=== PATIENT | male | born 1950 | race Caucasian/White ===

== ENCOUNTER 2016-11-16 11:45 | Outpatient (CLI) | payer MEDICARE ==
[2016-11-16 12:37] LABS: ALT (SGPT) 28 U/L (8-55); AST (SGOT) 19 U/L (5-34); Albumin 4.3 g/dL (3.4-4.8); Alkaline Phosphatase 81 U/L (40-150); Anion Gap 12 mmol/L (10-20); BUN (Urea Nitrogen) 17 mg/dL (8.4-25.7); Bilirubin, Direct 0.2 mg/dL (0.1-0.3); Bilirubin, Total 0.4 mg/dL (0.2-1.2); Calc. Creatinine Clearance 0 mL/min (70-130); Calcium 9.2 mg/dL (7.8-10.44); Carbon Dioxide 25 mmol/L (23-31); Chloride 106 mmol/L (98-107); Cholesterol 103 mg/dl (< 200 Desired); Estimated GFR-MDRD 88; Glucose 104 mg/dL (80-115); HDL Cholesterol 26 mg/dL (>60 Neg Risk); LDL Cholesterol, Calculated 36 mg/dL; Potassium 4.2 mmol/L (3.5-5.1); Sodium 139 mmol/L (136-145); Triglycerides 204 mg/dL (Less than 150)
== END 2016-11-16 11:46 | disposition home or self-care (01) ==
LOC: BURLAB 11:45
PROVIDERS: ATTEND Internal Medicine Cardiovascular Disease
DX: I48.0 Paroxysmal atrial fibrillation (principal); I10 Essential (primary) hypertension; E66.8 Other obesity
CPT/HCPCS: 36415; 80048; 80061; 80076

== ENCOUNTER 2016-12-03 13:00 | Emergency (ER) | payer MEDICARE ==
[2016-12-03 13:46] LABS: CKMB 1.1 ng/mL (0-6.6); Troponin I Less than 0.010 ng/mL (< 0.028)
[2016-12-03 13:50] LABS: #Basophils 0.1 thou/uL (0.0-0.2); #Eosinphils 0.3 thou/uL (0.0-0.7); #Monocytes 1.4 thou/uL (0.11-0.59); #Neutrophils 7.7 thou/uL (1.40-6.50); %Eosinophils 2.4 % (0.0-10.0); %Lymphocytes 20.9 % (21.0-51.0); %Monocytes 11.4 % (0.0-10.0); %Neutrophils 64.2 % (42.0-75.0); Elliptocytes SLIGHT = 2-5 cells (100X) (0-1/hpf); Hemoglobin 11.3 g/dL (14.0-18.0); Hypochromia MODERATE=16-30 cells (100X) (0-5/hpf); MDiff Complete? YES; Mean Corpuscular HGB CONC 30.1 g/dL (32.0-36.0); Mean Corpuscular Hemoglobin 19.3 pg (27.0-31.0); Mean Corpuscular Volume 64.4 fl (80.0-94.0); Mean Platelet Volume 7.4 fL (7.4-10.4); Microcytosis MARKED = >30 cells (100X) (0-5/hpf); Platelet Count 297 thou/uL (130-400); Polychromasia SLIGHT = 2-3 cells (100X) (0-2/hpf); RBC Distribution Width 16.6 % (11.5-14.5); Red Blood Cell (RBC) Count 5.86 mill/uL (4.70-6.10); Tear Drops SLIGHT = 2-5 cells (100X) (0-1/hpf); White Blood Cell (WBC) Count 11.9 thou/uL (4.8-10.8)
[2016-12-03 14:12] LABS: Bilirubin Negative (Negative); Blood, Urine Negative (Negative); Clarity Clear (Clear); Glucose, Urine (Dipstick) Negative (Negative); Leukocyte Negative (Negative); Nitrite Negative (Negative); Protein, Urine (Dipstick) Negative (Neg-Trace); Urobilinogen 0.2 mg/dL (0.2-1.0); pH, Urine 5.5 (5.0-9.0)
[2016-12-03 14:46] LABS: ALT (SGPT) 31 U/L (8-55); AST (SGOT) 23 U/L (5-34); Albumin 4.2 g/dL (3.4-4.8); Alkaline Phosphatase 74 U/L (40-150); Anion Gap 14 mmol/L (10-20); BUN (Urea Nitrogen) 19 mg/dL (8.4-25.7); Bilirubin, Total 0.4 mg/dL (0.2-1.2); Calc. Creatinine Clearance 0 mL/min (70-130); Calcium 8.8 mg/dL (7.8-10.44); Carbon Dioxide 23 mmol/L (23-31); Chloride 105 mmol/L (98-107); Estimated GFR-MDRD 81; Globulin 2.7 g/dL (2.4-3.5); Glucose 102 mg/dL (80-115); Potassium 4.2 mmol/L (3.5-5.1); Protein, Total 6.9 g/dL (5.8-8.1); Sodium 138 mmol/L (136-145)
--- NOTE | 2016-12-03 17:44 | RAD ---
AP PORTABLE CHEST 12/03/2016 1335 HOURS COMPARISON: A 07/12/2016 study from the [facility]. FINDINGS: There has been no adverse interval change. The heart size is normal. There are no congestive findi ngs, pleural effusions, or focal pulmonary infiltrates. Some lingular scarring is seen near the lef t hemidiaphragm, unchanged from before. Slight volume loss in the right lung is chronic, as well as slight blunting of the right costophrenic angle. IMPRESSION: Chronic changes but no acute findings. POS: HOME
== END 2016-12-03 15:14 | disposition home or self-care (01) ==
LOC: BURERS 13:00
DX: T67.5XXA Heat exhaustion, unspecified, initial encounter (principal); D50.9 Iron deficiency anemia, unspecified; K64.8 Other hemorrhoids; I25.2 Old myocardial infarction; I25.10 Atherosclerotic heart disease of native coronary artery without angina pectoris; I10 Essential (primary) hypertension; Z87.891 Personal history of nicotine dependence; Z79.899 Other long term (current) drug therapy
CPT/HCPCS: 71010; 80053; 81003; 82274; 82553; 83880; 84484; 85025; 93005

== ENCOUNTER 2017-10-09 12:36 | Outpatient (CLI) | payer MEDICARE ==
--- NOTE | 2017-10-09 22:00 | CT ---
CT OF THE THORAX WITH CONTRAST 10/09/17 Comparison is made with prior CT scans dated 12/02/15 and 08/19/14. Axial slices were acquired after injecting IV contrast. Coronal and sagittal reconstructions were the n done. The major finding on the study is a large left hilar mass which could be either mass or adenopathy. I t is a new finding since the prior CT scans and measures 4.3 x 2.4 cm. In addition, there is a small left apical mass measuring 1 cm in size that is new. There is also a new semisolid density in the sup erior portion of the right lower lobe anterior that measures 1.7 cm in size. This is below the level of the original mass. An additional finding is the patient has a known right thyroid mass, but it has enlarged since the prior study. This is difficult to measure discretely on today's exam, but this lo be is noticeably larger. There are no signs of effusion. There is no evidence of aortic aneurysm or dissection. The ascending aorta is mildly dilated as before but it has not really changed. The ascending aorta measures about 4 .2 cm in diameter. A filling defect is seen in the mid to distal superior vena cava but is felt to be more likely flow artifact than thrombus. There were no findings elsewhere that would strongly sugges t thrombi. Scans into the upper abdomen covered the majority of the liver which appeared normal. Tiny gallstones are seen in the gallbladder. There may be a small stone in the right kidney. The adrenal glands show no mass. The spleen is normal in size and the visible portions of the pancreas appear normal. IMPRESSION: 1. 4.3 cm left hilar mass or adenopathy, a new finding. 2. 1 cm left apical mass, a new finding. 3. Small 1.7 cm semisolid density in the superior segment of the right lower lobe. POS: HOME
== END 2017-10-09 12:37 | disposition home or self-care (01) ==
LOC: BURCT 12:36
PROVIDERS: ATTEND Internal Medicine Pulmonary Disease
DX: R91.8 Other nonspecific abnormal finding of lung field (principal); J98.4 Other disorders of lung
CPT/HCPCS: 71260

== ENCOUNTER 2017-11-15 12:52 | Emergency (ER) | payer MEDICARE ==
[2017-11-15] MEDS ORDERED: Midazolam HCl 2 mg/2 ml Vial ONE (13:21)
[2017-11-15] MEDS ORDERED: Fentanyl 100 MCG/2 ML VIAL ONE ×2 (13:21→13:31)
[2017-11-15 13:29] LABS: #Basophils 0.1 thou/uL (0.0-0.2); #Eosinphils 0.2 thou/uL (0.0-0.7); #Lymphocytes 1.7 thou/uL (1.20-3.40); #Neutrophils 8.8 thou/uL (1.40-6.50); %Basophils 0.8 % (0.0-1.0); %Eosinophils 1.5 % (0.0-10.0); %Lymphocytes 14.1 % (21.0-51.0); %Monocytes 8.6 % (0.0-10.0); %Neutrophils 74.9 % (42.0-75.0); Hemoglobin 16.6 g/dL (14.0-18.0); Mean Corpuscular HGB CONC 34.1 g/dL (32.0-36.0); Mean Corpuscular Hemoglobin 27.3 pg (27.0-31.0); Mean Corpuscular Volume 80.2 fl (80.0-94.0); Mean Platelet Volume 7.3 fL (7.4-10.4); Platelet Count 214 thou/uL (130-400); RBC Distribution Width 13.4 % (11.5-14.5); Red Blood Cell (RBC) Count 6.08 mill/uL (4.70-6.10); White Blood Cell (WBC) Count 11.8 thou/uL (4.8-10.8)
[2017-11-15] MEDS ORDERED: Lidocaine 1% w/Epinephrine 1:100K 30 ML VIAL ONE (13:40)
[2017-11-15 13:52] LABS: CKMB 0.8 ng/mL (0-6.6); Troponin I Less than 0.010 ng/mL (< 0.028)
[2017-11-15] MEDS ORDERED: Triple Antibiotic Oint 1 GM Packet ONE (14:17)
[2017-11-15 14:37] LABS: ALT (SGPT) 28 U/L (8-55); AST (SGOT) 29 U/L (5-34); Albumin 4.4 g/dL (3.4-4.8); Alkaline Phosphatase 78 U/L (40-150); Anion Gap 18 mmol/L (10-20); BUN (Urea Nitrogen) 15 mg/dL (8.4-25.7); Bilirubin, Total 0.6 mg/dL (0.2-1.2); Calc. Creatinine Clearance 0 mL/min (70-130); Calcium 9.3 mg/dL (7.8-10.44); Carbon Dioxide 22 mmol/L (23-31); Chloride 103 mmol/L (98-107); Estimated GFR-MDRD 74; Glucose 123 mg/dL (80-115); Potassium 4.2 mmol/L (3.5-5.1); Protein, Total 7.4 g/dL (5.8-8.1); Sodium 139 mmol/L (136-145)
--- NOTE | 2017-11-15 21:56 | RAD ---
PORTABLE CHEST 11/15/17 An AP portable film at 1256 shows a nearly complete left pneumothorax. There is a slight tension phen omenon with mild shift of the trachea towards the right. The right lung is basically clear. A promine nt cardiac fat pad is seen in the right cardiophrenic angle. The cardiac size is normal. IMPRESSION: Left tension pneumothorax. POS: HOME
--- NOTE | 2017-11-15 21:58 | RAD ---
PORTABLE CHEST: 11/15/17 An AP portable film was done as followup at 1356. A chest tube has been inserted on the left with ilia rly complete re-expansion of the left lung. There are strips of atelectasis seen in the lung bases. T he trachea is now closer to midline. The right lung is clear. IMPRESSION: Good positioning of the chest tube with significant reduction of the left pneumothorax. POS: HOME
== END 2017-11-15 14:47 | disposition short-term general hospital (02) ==
LOC: BURERS 12:52
DX: J95.811 Postprocedural pneumothorax (principal); I25.2 Old myocardial infarction; I10 Essential (primary) hypertension; Z87.891 Personal history of nicotine dependence; Z79.82 Long term (current) use of aspirin; Z79.899 Other long term (current) drug therapy
CPT/HCPCS: 32551; 71045; 80053; 82553; 83880; 84484; 85025; 93005; 94760; 99152; J2001; J2250; J3010

== ENCOUNTER 2018-02-03 08:54 | Emergency (ER) | payer MEDICARE ==
[2018-02-03] MEDS ORDERED: Ketorolac Tromethamine 30 MG/ML VIAL ONE (09:28)
[2018-02-03] MEDS ORDERED: Ondansetron ODT 4 MG TAB ONE (09:28)
[2018-02-03] MEDS ORDERED: oxyCODONE ER 10 MG TAB PO SCH (09:45)
== END 2018-02-03 09:59 | disposition home or self-care (01) ==
LOC: BURERS 08:54
DX: G89.29 Other chronic pain (principal); C78.00 Secondary malignant neoplasm of unspecified lung; E78.5 Hyperlipidemia, unspecified; I10 Essential (primary) hypertension; I25.10 Atherosclerotic heart disease of native coronary artery without angina pectoris; I25.2 Old myocardial infarction; Z85.038 Personal history of other malignant neoplasm of large intestine; Z85.46 Personal history of malignant neoplasm of prostate; Z87.891 Personal history of nicotine dependence; Z79.82 Long term (current) use of aspirin; Z79.899 Other long term (current) drug therapy
CPT/HCPCS: 96372; J1885; Q0162

== ENCOUNTER 2018-02-08 08:14 | Emergency (ER) | payer MEDICARE ==
[2018-02-08 08:49] LABS: #Basophils 0.1 thou/uL (0.0-0.2); #Monocytes 0.6 thou/uL (0.11-0.59); #Neutrophils 8.6 thou/uL (1.40-6.50); %Basophils 0.5 % (0.0-1.0); %Eosinophils 0.2 % (0.0-10.0); %Lymphocytes 9.3 % (21.0-51.0); %Monocytes 6.1 % (0.0-10.0); %Neutrophils 83.9 % (42.0-75.0); Hemoglobin 14.2 g/dL (14.0-18.0); Mean Corpuscular HGB CONC 35.1 g/dL (32.0-36.0); Mean Corpuscular Hemoglobin 26.6 pg (27.0-31.0); Mean Corpuscular Volume 75.9 fL (78.0-98.0); Mean Platelet Volume 4.9 fL (7.4-10.4); Platelet Count 238 thou/uL (130-400); RBC Distribution Width 17.3 % (11.5-14.5); Red Blood Cell (RBC) Count 5.33 mill/uL (4.70-6.10); White Blood Cell (WBC) Count 10.2 thou/uL (4.8-10.8)
[2018-02-08 09:05] LABS: ALT (SGPT) 18 U/L (8-55); AST (SGOT) 33 U/L (5-34); Albumin 3.8 g/dL (3.4-4.8); Alkaline Phosphatase 69 U/L (40-150); Anion Gap 15 mmol/L (10-20); BUN (Urea Nitrogen) 11 mg/dL (8.4-25.7); Bilirubin, Total 0.8 mg/dL (0.2-1.2); Calc. Creatinine Clearance 0 mL/min (70-130); Calcium 9.3 mg/dL (7.8-10.44); Carbon Dioxide 27 mmol/L (23-31); Chloride 103 mmol/L (98-107); Estimated GFR-MDRD Greater than 90; Globulin 2.5 g/dL (2.4-3.5); Glucose 100 mg/dL (80-115); Potassium 3.8 mmol/L (3.5-5.1); Protein, Total 6.3 g/dL (5.8-8.1); Sodium 141 mmol/L (136-145)
[2018-02-08 09:07] LABS: Troponin I Less than 0.010 ng/mL (< 0.028)
[2018-02-08] MEDS ORDERED: Gabapentin 100 MG CAP PO SCH (09:15)
[2018-02-08] MEDS ORDERED: Lorazepam 2 MG/ML VIAL ONE (09:39)
[2018-02-08] MEDS ORDERED: Fentanyl 100 MCG/2 ML VIAL ONE ×2 (09:39→11:12)
[2018-02-08 10:12] LABS: Clarity Cloudy (Clear)
[2018-02-08 10:13] LABS: Bacteria/HPF 3+ HPF (None Seen); Bilirubin Small (Negative); Blood, Urine Small (Negative); Glucose, Urine (Dipstick) Negative (Negative); Leukocyte Large (Negative); Nitrite Positive (Negative); Protein, Urine (Dipstick) 30 mg/dL (Neg-Trace); RBC/HPF 0-3 HPF (0-3); Squamous Epithelial 0-3 HPF (0-3)
[2018-02-08 10:14] LABS: Other Microscopic Description SMALL MUCOUS STRANDS
[2018-02-08] MEDS ORDERED: Sodium Chloride 0.9% 100 ML ONE (10:21)
[2018-02-08] MEDS ORDERED: cefTRIAXone\\ROCEPHIN 2 GM VIAL ONE (10:21)
--- NOTE | 2018-02-08 13:00 | RAD ---
CHEST 2 VIEWS: DATE: 02/08/18. FINDINGS: Comparison is made with an 12/17/[address] [facility]. The left hilar enlargement is appr oximately the same as it was before. The heart size is normal. There are no large effusions or sign s of pulmonary edema. No masses were seen elsewhere. A MediPort catheter has been added since the p rior study and enters on the right side. IMPRESSION: Exam very similar to the prior study, except for addition of the MediPort catheter. Left hilar enlar gement/mass is approximately the same as the previous study. POS: [facility]
== END 2018-02-08 11:40 | disposition home or self-care (01) ==
LOC: BURERS 08:14
DX: R25.8 Other abnormal involuntary movements (principal); T40.2X5A Adverse effect of other opioids, initial encounter; N39.0 Urinary tract infection, site not specified; I25.10 Atherosclerotic heart disease of native coronary artery without angina pectoris; E78.5 Hyperlipidemia, unspecified; I25.2 Old myocardial infarction; I48.91 Unspecified atrial fibrillation; Z87.891 Personal history of nicotine dependence; Z79.82 Long term (current) use of aspirin; Z79.01 Long term (current) use of anticoagulants; Z79.899 Other long term (current) drug therapy
CPT/HCPCS: 36415; 71046; 80053; 81003; 81015; 82553; 83605; 84484; 85025; 94760; 96365; 96375; 96376; J0696; J2060; J3010; J7050